=== PATIENT | female | born 1980 | race Caucasian/White ===

== ENCOUNTER 2023-09-21 10:59 | Emergency (ER) | payer MEDICAID ==
[~2023-09-21] VITALS: Ht 154.9 cm; Wt 68.0 kg
[2023-09-21 11:05] VITALS: BP 141/47; PULSE 82; RESP 16; TEMP 98; O2SAT 99
== END 2023-09-21 18:04 | disposition left against medical advice (07) ==
LOC: ER 12:45
DX: N64.4 Mastodynia (principal); Z53.21 Procedure and treatment not carried out due to patient leaving prior to being seen by health care provider
CPT/HCPCS: 99281